=== PATIENT | male | born 1950 ===

== ENCOUNTER 2020-08-17 06:00 | Day surgery (SDC) | payer OTHER ==
[~2020-08-17 06:00] MED LIST: GABAPENTIN300 M2 PO; HUMALOG100 UNIT/2; LANTUS SOL100 UNIT/1; LEVO-T137 MCG PO; LIPITOR20 MG PO; TAMS0.4C PO; TOPROL XL25 M1 PO; ZESTRIL20 MG PO; ZIPSOR25 MG PO
== END 2020-08-17 11:30 | disposition home or self-care (01) ==
LOC: CIR.AMB 06:00
PROVIDERS: ATTEND Orthopaedic Surgery Hand Surgery
DX: G56.01 Carpal tunnel syndrome, right upper limb (principal); Z20.822 Contact with and (suspected) exposure to COVID-19